=== PATIENT | male | born 1950 | race Hispanic/Latino ===

== ENCOUNTER 2017-10-23 11:48 | Inpatient (IN) | payer MEDICARE ==
[2017-10-23 12:11] VITALS: BMI 30.5
--- NOTE | 2017-10-23 12:58 | ED PDOC ---
Arrival/HPI - History of Present Illness Time/Duration: < week Symptom Onset: Sudden Symptom Course: Improving Activities at Onset: Rest Context: Home <Jefry Soto - Last Filed: 10/23/17 13:09> <France Bustos - Last Filed: 10/24/17 07:12> - General Chief Complaint: Medical Clearance Time Seen by Provider: 10/23/17 12:15 - History of Present Illness Narrative History of Present Illness (Text): 10/23/17 13:00 This is a 67 year old male with PMH of stroke in 2013, COPD, heroin addiction and HT presenting to ED as transfer from [facility] for slurred speech that began on Tuesday. Patient states he had slurred speech and SOB on Tuesday. Today, symptoms are improved but is concerned about residual slurred speech symptoms and came to [facility] ED. He admits to taking plavix in the morning. He received aspirin 325mg upon arrival at [facility], and Head CT and Chest Xray were negative for any acute process. Blood work at [facility] was unremarkable, including troponin of 0.00 and EKG with sinus tachycardia of 123bmp. Currently, he denies CP, SOB, headache , neurological deficits, fevers, chills, nausea, vomiting, recent travel, sick contacts at home and recent sickness. Of note, patient is on methane treatment for heorin addiction but has not received his last few treatments. PMD: Dr. Jeet Zaragoza (Jefry Soto) Past Medical History - Provider Review Nursing Documentation Reviewed: Yes - Past History Past History: Non-Contributing - Infectious Disease Hx of Infectious Diseases: None - Tetanus Immunization Tetanus Immunization: Unknown - Past Medical History Past Medical History: Non-Contributing - Cardiac Hx Cardiac Disorders: Yes Hx Hypertension: Yes - Pulmonary Hx Chronic Obstructive Pulmonary Disease (COPD): Yes - Neurological HX Cerebrovascular Accident: Yes (RIGHT SIDED WEAKNESS,STROKE CEREBRAL ISCHEMIA) - HEENT Hx HEENT Disorder: (WEARS RX GLASSES) - Renal Other/Comment: Acute renal failure. - Endocrine/Metabolic Hx Endocrine Disorders: No - Hematological/Oncological Hx Blood Disorders: Yes Hx Cirrhosis: Yes Hx Hepatitis C: Yes Other/Comment: cirrhosis - Integumentary Hx Dermatological Disorder: No - Musculoskeletal/Rheumatological Hx Falls: Yes (x2 at ) Hx Unsteady Gait: Yes - Gastrointestinal Hx Gastrointestinal Disorders: No - Psychiatric Hx Psychophysiologic Disorder: Yes (SMOKES PPD,[facility]) Hx Substance Use: Yes (Hx heroine ) - Past Surgical History Past Surgical History: Non-Contributing - Anesthesia Hx Anesthesia: No Hx Anesthesia Reactions: No Hx Malignant Hyperthermia: No - Suicidal Assessment Feels Threatened In Home Enviroment: No <Jefry Soto - Last Filed: 10/23/17 13:09> Family/Social History - Physician Review Nursing Documentation Reviewed: Yes Family/Social History: Unknown Family HX Smoking Status: Former Smoker Hx Alcohol Use: No (3 beers/day) Hx Substance Use: Yes (Hx heroine ) Hx Substance Use Treatment: No <ArseniosharanJefry - Last Filed: 10/23/17 13:09> Allergies/Home Meds <BrittanySangeetacherie - Last Filed: 10/23/17 13:09> <Juan Bustosstone - Last Filed: 10/24/17 07:12> Allergies/Adverse Reactions: Allergies No Known Allergies Allergy (Verified 04/01/14 11:09) Home Medications: Home Meds Medication Instructions Recorded Confirmed Losartan [Cozaar] 100 mg PO DAILY 04/01/14 10/23/17 Methadone [Methadone] 40 mg PO DAILY 04/01/14 10/23/17 Aspirin [Aspirin EC] 81 mg PO DAILY 04/10/14 10/23/17 Atorvastatin [Lipitor] 80 mg PO HS 04/10/14 10/23/17 Clopidogrel [Plavix] 75 mg PO DAILY 04/10/14 10/23/17 cloNIDine [clonidine HCl] 0.1 mg PO Q12 04/10/14 10/23/17 NIFEdipine ER [Procardia XL] 30 mg PO DAILY 10/23/17 10/23/17 Review of Systems - Physician Review All systems were reviewed & negative as marked: Yes - Review of Systems Constitutional: Normal. absent: Fevers Eyes: Normal. absent: Vision Changes ENT: Normal. absent: Hearing Changes, Sore Throat Respiratory: SOB. absent: Cough, Sputum Cardiovascular: Normal. absent: Chest Pain, Palpitations, Syncope Gastrointestinal: Normal. absent: Abdominal Pain, Nausea, Vomiting Genitourinary Male: Normal. absent: Dysuria, Frequency Musculoskeletal: Normal Skin: Normal Neurological: Normal, Speech Changes. absent: Headache, Dizziness, Focal Weakness Endocrine: Normal Hemo/Lymphatic: Normal Psychiatric: Normal <Jefry Soto - Last Filed: 10/23/17 13:09> Physical Exam Temperature: Afebrile Blood Pressure: Hypertensive Pulse: Regular Respiratory Rate: Normal Appearance: Positive for: Well-Appearing, Non-Toxic, Comfortable Pain Distress: None Mental Status: Positive for: Alert and Oriented X 3 - Systems Exam Head: Present: Atraumatic, Normocephalic Pupils: Present: PERRL Extroacular Muscles: Present: EOMI Conjunctiva: Present: Normal Mouth: Present: Moist Mucous Membranes Neck: Present: Normal Range of Motion Respiratory/Chest: Present: Clear to Auscultation, Good Air Exchange. No: Respiratory Distress, Accessory Muscle Use Cardiovascular: Present: Regular Rate and Rhythm, Normal S1, S2. No: Murmurs Abdomen: No: Tenderness, Distention, Peritoneal Signs Back: Present: Normal Inspection Upper Extremity: Present: Normal Inspection. No: Cyanosis, Edema Lower Extremity: Present: Normal Inspection. No: Edema Neurological: Present: GCS=15, CN II-XII Intact, Speech Normal, Motor Func Grossly Intact, Normal Sensory Function Skin: Present: Warm, Dry, Normal Color. No: Rashes Psychiatric: Present: Alert, Oriented x 3, Normal Insight, Normal Concentration <Jefry Soto - Last Filed: 10/23/17 13:09> Vital Signs Temp Pulse Resp BP Pulse Ox 10/23/17 14:00 98.9 F 86 18 130/75 97 10/23/17 12:00 98.8 F 100 H 18 145/46 L 98 Medical Decision Making <Jefry Soot - Last Filed: 10/23/17 13:09> <France Bustos - Last Filed: 10/24/17 07:12> ED Course and Treatment: 10/23/17 12:46 Impression: This is a 67 year old male with PMH of stroke in 2013, COPD, heroin addiction and HT presenting to ED as transfer from [facility] for slurred speech that began on Tuesday. Differential not limited to: ischemic stroke vs. TIA vs. methadone dependance vs. COPD Plan: Patient is admitted here as transfer from [facility]. Patient RECEIVED ASPRIN 325 mg at [facility] during admissoin. CT head w/o contrast done at [facility] this morning at 9: 02am shoed age related atrophy, mild small vessel ischemic change. Chronic lacunar infarcts in the left villela radiata and thalamus. Chest xray done today [facility] at 8:36am showed no radiographic evidence of acute cardiopulmonary disease. EKG done at 8:51am showed sinus tachycardia at rate of 123bmp. Blood work done at [facility] today included the following relevant values: troponin = 0.00 , WBC = 11.6, PT=12.1, INR=1, xsdhmrfwk=757, Hg=13.3, glucose= 169, Cr=1.6, Na= 139, K=3.4, and BNP < 15. Progress: 10/23/17 12:58 Patient resting comfortably, afebrile, vitals stable at this time. (Jefry Soto) Patient seen and evaluated with medical insurance verifier. I supplemented history with patient's family. HE HAS HAD SYMPTOMS FOR TWO DAYS. Slurred speech was noted two days ago. Patient states slurred speech has improved BUT PERSISTS. He has had prior stroke which affect his speech and right side. He states that speech is worse than his baseline. Right side strength is near his baseline. All records from outside facility were reviewed, and patient's head CT was reviewed from transferring facility. Aspirin was given prior to arrival. Patient not a tpa candidate as symptoms for several days. Patient's case discussed with Dr. Pepito Zaragoza who requests Dr. Mccracken for consultation. Chest xray was performed at outside facility. (France Bustos) - Medication Orders Current Medication Orders: Thiamine HCl (Vitamin B1 Tab) 100 mg PO DAILY AIDA Last Admin: 10/23/17 17:26 Dose: 100 mg NIHSS Scale ([place]) Time Performed: 12:00 - How Severe is the Stoke Baseline Level of Consciousness: 0=Alert LOC to Questions: 0=Both comments correct LOC to commands: 0=Obeys both correctly Best Gaze: 0=Normal Visual: 0=No visual loss Facial: 0=Normal Motor Arm - Left: 0=No drift Motor Arm - Right: 1=Drift noted before 10 sec Motor Leg - Left: 0=No drift Motor Leg - Right: 0=No drift Limb Ataxia: 0=Absent Sensory: 0=Normal Best Language: 0=No aphasia Dysarthia: 1=Mild to moderate slurring Extinction & Inattention (Neglect): 0=Normal, no object Score: 2 Risk Level: Minor Stroke Risk <France Bustos - Last Filed: 10/24/17 07:12> rTPA Inclusion/Exclusion - Refusal of Treatment Patient Refused Treatment: Yes - Inclusion Criteria for Altepase Time of Onset is Well Established to be Less Than 270 Minute Before Treatment Would Begin: No <France Bustos - Last Filed: 10/24/17 07:12> - PA / RADIOACTIVE WASTE DISPOSAL DISPATCHER / Resident Statement / has reviewed & agrees with the documentation as recorded. / has examined the patient and agrees with the treatment plan. <Jefry Soto - Last Filed: 10/23/17 13:09> Disposition/Present on Arrival - Present on Arrival History of DVT/PE: No History of Uncontrolled Diabetes: No Urinary Catheter: No History of Decub. Ulcer: No History Surgical Site Infection Following: None <Jefry Soto - Last Filed: 10/23/17 13:09> - Present on Arrival Any Indicators Present on Arrival: No - Disposition Have Diagnosis and Disposition been Completed?: Yes Disposition Time: 13:00 Patient Plan: Admission, Telemetry <France Bustos - Last Filed: 10/24/17 07:12> - Disposition Diagnosis: CVA (cerebral infarction), Slurred speech, Leukocytosis, Renal insufficiency Disposition: HOSPITALIZED Patient Problems: Current Active Problems Problem Status Onset CVA (cerebral infarction) Acute Leukocytosis Acute Renal insufficiency Acute Slurred speech Acute Condition: SERIOUS
[2017-10-23 14:30] LABS: BASO # 0.04 K/mm3 (0.0-2.0); BASO % 0.3 % (0.0-3.0); EOS # 0.2 (0.0-0.7); EOS % 1.1 % (1.5-5.0); GRAN # 9.66 (1.4-6.5); GRAN % 73.9 % (50.0-68.0); HEMOGLOBIN 12.6 g/dL (14.0-18.0); LYMPH # 1.9 (1.2-3.4); LYMPH % 14.8 % (22.0-35.0); MEAN CELL VOLUME 82.4 fl (80.0-105.0); MEAN CORPUSCULAR HEMOGLOBIN 28.4 pg (25.0-35.0); MEAN CORPUSCULAR HGB CONC 34.5 g/dl (31.0-37.0); MEAN PLATELET VOLUME 9.1 fl (7.0-11.0); MONO # 1.3 (0.1-0.6); MONO % 9.9 % (1.0-6.0); RBC 4.43 10^6/uL (3.5-6.1); RED CELL DISTRIBUTION WIDTH 13.2 % (11.5-14.5); WHITE BLOOD COUNT 13.1 10^3/ul (4.5-11.0)
[2017-10-23 14:38] LABS: ALB/GLOB RATIO 1.4 (1.1-1.8); ALBUMIN 4.8 g/dL (3.0-4.8); ALT/SGPT 32 U/L (7-56); AST/SGOT 57 U/L (17-59); BLOOD UREA NITROGEN 38 mg/dL (7-21); CALCIUM 9.5 mg/dL (8.4-10.5); GFR AFRICAN-AMERICAN 53; GFR NON-AFRICAN AMERICAN 43; HDL CHOLESTEROL 33 mg/dL (29-60)
[2017-10-23 14:41] LABS: INR 1.07 (0.93-1.08); PARTIAL THROMBOPLASTIN TIME 29.3 Seconds (25.1-36.5); PROTHROMBIN TIME 12.2 SECONDS (9.4-12.5)
[2017-10-23 14:48] LABS: LDL CHOLESTEROL 63 mg/dL (0-129)
[2017-10-23 14:51] LABS: TROPONIN I < 0.01 ng/mL
--- NOTE | 2017-10-23 17:01 | CARD ---
APPROVED REPORT Date of service: 10/23/2017 EKG Measurement Heart [id number] <Conclusion> Sinus tachycardia Inferior infarct, age undetermined Abnormal ECG
--- NOTE | 2017-10-23 17:06 | MRI ---
Date of service: 10/23/2017 PROCEDURE: MRI BRAIN WITHOUT CONTRAST HISTORY: slurred speech, cva COMPARISON: None. TECHNIQUE: Multiplanar, multisequence MR images of the brain were obtained without intravenous contrast enhancement. FINDINGS: HEMORRHAGE: None DWI: There is an acute infarct in the deep white matter of the right posterior frontal lobe. This measures 8 x 12 mm as seen on image 16 series 3 BRAIN PARENCHYMA: No mass effect or edema. Chronic microvascular changes are seen in the periventricular white matter VENTRICLES: Unremarkable. No hydrocephalus. CRANIUM: Unremarkable. ORBITS: Grossly unremarkable. PARANASAL SINUSES/MASTOIDS: Clear VASCULAR SYSTEM: Skull base flow voids intact. OTHER FINDINGS: None. IMPRESSION: 8 x 12 mm acute infarct in the deep white matter of the right posterior frontal lobe
[2017-10-24 03:42] VITALS: O2SAT 96
[2017-10-24] MEDS ORDERED: NIFEdipine 30 mg ER Tab PO SCH (10:00)
[2017-10-24 12:58] VITALS: BP 127/81; RESP 18; TEMP 97.9
[2017-10-24 15:01] VITALS: PULSE 68
--- NOTE | 2017-10-24 17:54 | CON ---
DATE: 10/24/2017 NEUROLOGY CONSULTATION CHIEF COMPLAINT: Slurred speech. HISTORY OF PRESENT ILLNESS: This is a 67-year-old man with history of CVA in 2013 affecting his right side, COPD, having addiction on methadone, hypertension, came in for transient slurred speech for the past few days. Currently, his speech is much better. He takes his aspirin and Plavix. No focal weakness seen on extremities except for his residual right-sided weakness from prior CVA and right hemiparetic gait. Otherwise, he is able to walk around the whole nursing station. No change in sense of vision, taste or smell at time. His speech is much better. He had acute infarct in the deep white matter in the right posterior frontal lobe with secondary diffuse atherosclerotic disease and uncontrolled hypertension. He is clinically stable to follow up with me as an outpatient and will be on aspirin 81, Plavix 75, and atorvastatin 80 mg for 21 days. PAST MEDICAL HISTORY: As above. ALLERGIES: NO KNOWN DRUG ALLERGIES. SOCIAL HISTORY: Former smoker and drug use and EtOH use. MEDICATIONS: Reviewed by nurse reconciliation sheet. FAMILY HISTORY: Noncontributory. REVIEW OF SYSTEMS: A 14-point review of systems is negative except as per the HPI. LABORATORY DATA: Today's blood sugar is 119, A1c 6.3. PHYSICAL EXAMINATION: VITAL SIGNS: Temperature 97.9, pulse rate 69, blood pressure 127/81, respiratory rate of 18, oxygen saturation of 96% by room air. GENERAL: The patient is sitting up in bed, in no acute distress. HEENT: Atraumatic, normocephalic. PERRLA. Extraocular muscles intact. NECK: Supple. No JVD. No adenopathy noted. LUNGS: Clear to auscultation. No adventitious sounds. HEART: S1, S2. Normal rate and rhythm. No murmurs, rubs or gallops. ABDOMEN: Soft, nontender and nondistended. Bowel sounds are present. EXTREMITIES: No clubbing. No cyanosis. Peripheral pulses 2+ felt bilaterally. NEUROLOGIC: The patient is alert and oriented to person, place, month and year. Speech is fluent without any errors. Mild dysarthria noted, but no aphasia noted. Cranial nerves II through XII are intact. Motor exam: Moves all extremities equally except for decreased tone on the right side and has residual right-sided weakness from prior CVA. Left side is intact. Toes are downgoing bilaterally. Sensory exam: Light touch, pinprick, proprioception and vibration are intact. DTRs are 2+ throughout. Coordination: [id number]-ti-ptdx intact. No dysmetria noted. Gait is right-sided hemiparetic from prior CVA and wide based at this time. IMPRESSION AND PLAN: This is a 67-year-old man with history of hypertension, history of left middle cerebral artery territory infarct with residual spastic right-sided weakness with right hemiparetic gait, history of hepatitis C, history of drug abuse on methadone who came in for slurred speech, residual right-sided weakness from prior cerebrovascular accident. He was found to have an acute right posterior frontal lobe infarct, which is secondary to diffuse atherosclerotic disease and uncontrolled hypertension. At this time, we will recommend: 1. Aspirin 81, Plavix 75 and Lipitor 80 mg for stroke prevention. He will follow up with me in the office for further stroke followup and low sodium, low fat diet and will need physical therapy and occupational therapy as an outpatient. Once again, thank you for this consult. Nicolas Mccracken MD
--- NOTE | 2017-10-24 18:42 | US ---
PROCEDURE: Bilateral carotid artery duplex ultrasound HISTORY: Carotid stenosis CVA PHYSICIAN(S): Reinaldo King MD. TECHNIQUE: Duplex sonography and color-flow Doppler were used to evaluate the carotid bifurcations and limited segments of the vertebral arteries bilaterally. The exam is limited by body habitus and somewhat tortuous vessels. FINDINGS: There is mild to moderate smooth heterogeneous plaque noted at the carotid bifurcations bilaterally. The peak systolic velocity in the proximal right internal carotid artery is 73 cm/sec. This corresponds to a 20 to 39% proximal right ICA stenosis. Normal systolic velocities are noted in the proximal right external carotid artery. There is antegrade flow in the small right vertebral artery. The peak systolic velocity in the proximal left internal carotid artery is 67 cm/sec. This corresponds to a 20 to 39% proximal left ICA stenosis. Normal systolic velocities are noted in the proximal left external carotid artery. There is antegrade flow in the left vertebral artery. IMPRESSION: 1. Bilateral 20-39% proximal ICA stenoses. 2. Antegrade flow in both vertebral arteries. 3. Limited study.
--- NOTE | 2017-10-24 22:09 | HP ---
HISTORY OF PRESENT ILLNESS: The patient is a 67-year-old male with a history of CVA with residual right hemiparesis and expressive aphasia in 04/2014, who presented to the emergency room on 10/23/2017 with slurred speech. MRI showed small acute infarct in the deep white matter of the right posterior frontal lobe which measured approximately 8 x 12 mm and the patient is admitted to the Telemetry Unit for further observation and management. PAST MEDICAL HISTORY: The patient's past medical history includes CVA, right hemiparesis in 04/2014, hypertension, hypercholesterolemia and history of hyperglycemia. The patient also has a history of IV drug abuse, currently on methadone. The patient also has a history of type 2 diabetes mellitus which is diet controlled. PAST SURGICAL HISTORY: The patient has no significant past surgical history. ALLERGIES: THE PATIENT HAS NO KNOWN DRUG ALLERGIES. FAMILY HISTORY: Noncontributory. CURRENT MEDICATIONS: The patient's current medications include Ecotrin 81 mg, Plavix 75 mg daily, amlodipine 10 mg daily, Lipitor 80 mg daily, losartan-hydrochlorothiazide 100/25 mg daily, methadone 40 mg daily, Procardia XL 30 mg daily, clonidine 0.1 mg twice daily. SOCIAL HISTORY: The patient has a history of approximately 40-pack year tobacco use, quit 2-3 years ago. He has a history of alcohol use in the past, quit 2-3 years ago. Currently, he lives with his . He is independent with ADLs and IADLs. PHYSICAL EXAMINATION: GENERAL: The patient is a well-developed male in no acute distress. VITAL SIGNS: Blood pressure 127/81, temperature 97.9, pulse 69, respiratory rate 18. HEENT: Head is normocephalic, atraumatic. Pupils equal, round, reactive to light. Extraocular movements intact. NECK: Supple. No thyromegaly. No carotid bruits. No adenopathy. LUNGS: Clear. HEART: Regular rate and rhythm. ABDOMEN: Soft, nontender. Bowel sounds are normoactive. EXTREMITIES: Without cyanosis, clubbing or edema. NEUROLOGIC: The patient is awake and oriented x3. There is a mild expressive aphasia and mild right hemiparesis with 4+/5 motor strength of the right upper extremity and 4+/5 motor strength of the right lower extremity. Left upper and lower extremity are 5/5 in flexion and extension. SKIN: Warm and dry. LABORATORY DATA: WBCs 13.1, hemoglobin 12.6, hematocrit 36.5. Sodium 143, potassium 3.9, chloride 101, CO2 of 26, BUN 38, creatinine 1.6, glucose 116. Troponin is less than 0.01. IMPRESSION: 1. Recurrent cerebrovascular accident. 2. Type 2 diabetes mellitus. 3. Hypertension. PLAN: The patient is admitted to the Telemetry Unit. We will continue Plavix and aspirin, obtain Neurology consult, Dr. Mccracken, physical therapy and social work for discharge planning. Jeet Zaragoza JD/
--- NOTE | 2017-10-25 13:14 | DS ---
HOSPITAL COURSE: The patient is a 67-year-old male with a history of CVA with residual right hemiparesis, who was admitted through the emergency room on 10/23/2017 with recurrent small acute infarct in the deep white matter of the right posterior frontal lobe measuring 8 x 12 mm. The patient was observed on telemetry, had an uneventful hospital course and was discharged to home in stable condition on 10/24/2017. Prior to discharge, he was seen in consultation by neurology, Dr. Mccracken. He had a carotid Doppler exam which showed no hemodynamically significant carotid obstruction. Physical examination and vital signs are as per admission history and physical of 10/24/2017. IMPRESSION: 1. Recurrent cerebrovascular accident. 2. Type 2 diabetes mellitus. 3. Hypertension. PLAN: The patient was discharged to home on the following medications: Lipitor 80 mg daily, Plavix 75 mg daily, Ecotrin 81 mg daily, losartan/hydrochlorothiazide 100/25 mg daily, methadone 40 mg daily, Procardia XL 30 mg daily and clonidine 0.1 mg twice daily. The patient will be maintained on a low-sodium, heart-healthy diet. Activities ad libitum. He will be followed up as an outpatient within the next 1-2 weeks in my office and with Dr. Mccracken as well. RAOUL Garcia MD
== END 2017-10-24 17:20 | disposition home or self-care (01) | DRG 65 ==
LOC: ED 11:48 → ERH 13:00 → 2RSO 14:38 → 2RNO 17:28
PROVIDERS: ADMIT Internal Medicine; ATTEND Internal Medicine
DX: I63.9 Cerebral infarction, unspecified (principal); I69.351 Hemiplegia and hemiparesis following cerebral infarction affecting right dominant side; I69.320 Aphasia following cerebral infarction; D72.829 Elevated white blood cell count, unspecified; E11.9 Type 2 diabetes mellitus without complications; E78.00 Pure hypercholesterolemia, unspecified; I10 Essential (primary) hypertension; I69.398 Other sequelae of cerebral infarction; J44.9 Chronic obstructive pulmonary disease, unspecified; K74.60 Unspecified cirrhosis of liver; N28.9 Disorder of kidney and ureter, unspecified; Z79.02 Long term (current) use of antithrombotics/antiplatelets; Z87.891 Personal history of nicotine dependence; F11.90 Opioid use, unspecified, uncomplicated